=== PATIENT | male | born 1960 | race Caucasian/White ===

== ENCOUNTER → 2018-11-11 | Outpatient (REF) | payer OTHER ==
[~2018-11-11] MED LIST: ATOR10TA66 PO; ATOR40TA70 PO
--- NOTE | 2018-11-11 16:22 | Diagnostic Imaging Report ---
PROCEDURE: MRI left upper extremity without contrast. TECHNIQUE: Multiplanar, multisequence non contrast-enhanced MRI of the left upper extremity was accomplished. INDICATION: Decreased range of motion. Injury three weeks ago. Pain in the left shoulder. COMPARISON: None FINDINGS: No acute fracture is seen in the left shoulder. Alignment appears normal. There is a small left shoulder joint effusion extending to the superior subscapularis recess and long head of the biceps tendon sheath. The acromioclavicular joint demonstrates mild degenerative change. The supraspinatus tendon is intact. The infraspinatus and teres minor tendons are intact. The subscapularis tendon demonstrates moderate tendinosis with a high-grade partial thickness tear at the articular surface. There may be a very small full-thickness component. No muscular atrophy is seen. The long head of the biceps tendon is intact. The glenoid labrum is suboptimally evaluated in the absence of intra-articular contrast. No para-labral cysts are seen. The acromion has a slightly curved undersurface, and the coracoclavicular and coracoacromial ligaments appear intact. The soft tissues about the left shoulder are otherwise unremarkable. The subcoracoid fat is preserved. There is mild edema about the inferior glenohumeral ligament. IMPRESSION: 1. Tendinosis with high-grade partial-thickness tear of the subscapularis tendon. There may be a very small full-thickness component. There is no muscular atrophy. 2. Suspected low-grade sprain of the inferior glenohumeral ligament. Dictated by: Dictated on workstation # [id number]
== END | disposition home or self-care (01) ==
LOC: RAD 14:48
PROVIDERS: ATTEND Nurse Practitioner Family
CPT/HCPCS: 73221

== ENCOUNTER → 2018-11-18 | Outpatient (CLI) | payer OTHER | LOC: ORTHO 10:30 | PROVIDERS: ATTEND Orthopaedic Surgery | DX: S43.492A Other sprain of left shoulder joint, initial encounter (principal); X50.0XXA Overexertion from strenuous movement or load, initial encounter; Y99.0 Civilian activity done for income or pay | CPT/HCPCS: 99203 ==

== ENCOUNTER → 2018-12-16 | Outpatient (CLI) | payer OTHER | LOC: ORTHO 09:42 | PROVIDERS: ATTEND Orthopaedic Surgery | DX: S46.012A Strain of muscle(s) and tendon(s) of the rotator cuff of left shoulder, initial encounter (principal); X50.9XXA Other and unspecified overexertion or strenuous movements or postures, initial encounter; Y99.0 Civilian activity done for income or pay | CPT/HCPCS: 99213 ==

== ENCOUNTER → 2019-01-23 | Outpatient (CLI) | payer OTHER | LOC: ORTHO 08:31 | PROVIDERS: ATTEND Orthopaedic Surgery | DX: S46.012A Strain of muscle(s) and tendon(s) of the rotator cuff of left shoulder, initial encounter (principal); X50.9XXA Other and unspecified overexertion or strenuous movements or postures, initial encounter; Y99.0 Civilian activity done for income or pay | CPT/HCPCS: 99213 ==

== ENCOUNTER → 2019-01-27 | Outpatient (CLI) | payer OTHER | LOC: ORTHO 10:44 | PROVIDERS: ATTEND Orthopaedic Surgery | DX: S46.012A Strain of muscle(s) and tendon(s) of the rotator cuff of left shoulder, initial encounter (principal); X50.9XXA Other and unspecified overexertion or strenuous movements or postures, initial encounter; Y99.0 Civilian activity done for income or pay ==

== ENCOUNTER → 2019-02-19 | Outpatient (CLI) | payer OTHER | LOC: ORTHO 09:47 | PROVIDERS: ATTEND Orthopaedic Surgery | DX: S46.012A Strain of muscle(s) and tendon(s) of the rotator cuff of left shoulder, initial encounter (principal); X50.9XXA Other and unspecified overexertion or strenuous movements or postures, initial encounter; Y99.0 Civilian activity done for income or pay | CPT/HCPCS: 99213 ==

== ENCOUNTER → 2019-04-11 | Outpatient (CLI) | payer OTHER | LOC: ORTHO 09:48 | PROVIDERS: ATTEND Orthopaedic Surgery | DX: S46.012A Strain of muscle(s) and tendon(s) of the rotator cuff of left shoulder, initial encounter (principal); X50.9XXA Other and unspecified overexertion or strenuous movements or postures, initial encounter; Y99.0 Civilian activity done for income or pay | CPT/HCPCS: 99213 ==

== ENCOUNTER → 2019-05-09 | Outpatient (CLI) | payer OTHER | LOC: ORTHO 08:49 | PROVIDERS: ATTEND Orthopaedic Surgery | DX: S46.012A Strain of muscle(s) and tendon(s) of the rotator cuff of left shoulder, initial encounter (principal); X50.9XXA Other and unspecified overexertion or strenuous movements or postures, initial encounter; Y99.0 Civilian activity done for income or pay | CPT/HCPCS: 99213 ==

== ENCOUNTER 2019-05-30 10:32 | Outpatient (RCR) | payer OTHER | END 2019-06-10 | disposition home or self-care (01) | PROVIDERS: ATTEND Orthopaedic Surgery | DX: S46.012A Strain of muscle(s) and tendon(s) of the rotator cuff of left shoulder, initial encounter (principal); X50.9XXA Other and unspecified overexertion or strenuous movements or postures, initial encounter; Y99.0 Civilian activity done for income or pay ==

== ENCOUNTER 2019-07-04 10:54 | Outpatient (RCR) | payer OTHER | END 2019-07-04 14:41 | disposition home or self-care (01) | PROVIDERS: ATTEND Orthopaedic Surgery | DX: S46.012D Strain of muscle(s) and tendon(s) of the rotator cuff of left shoulder, subsequent encounter (principal); M75.112 Incomplete rotator cuff tear or rupture of left shoulder, not specified as traumatic ==

== ENCOUNTER 2019-10-03 12:28 | Outpatient (RCR) | payer OTHER | END 2019-12-11 | disposition home or self-care (01) | PROVIDERS: ATTEND Nurse Practitioner Family | DX: M65.30 Trigger finger, unspecified finger (principal); Z98.890 Other specified postprocedural states ==

== ENCOUNTER 2020-02-22 16:52 | Emergency (ER) | payer OTHER ==
[~2020-02-22] VITALS: Ht 177.8 cm; Wt 73.5 kg
--- NOTE | 2020-02-22 17:00 | NUR ---
specimen cup provided urine specimen requested.
--- NOTE | 2020-02-22 17:10 | ED Back Pain ---
General Chief Complaint: Back Problems Stated Complaint: ABD/BACK PAIN Nursing Triage Note: left flank pain today. denies injury. reports constipation. Nursing Sepsis Screen: No Definite Risk Source of Information: Patient Exam Limitations: No Limitations History of Present Illness Date Seen by Provider: Feb 22, 2020 Time Seen by Provider: 17:07 Initial Comments To ER with c/o LLQ / left flank pain that was present on awakening this morning, not present on going to bed last night. Mild radiation of pain to left scrotum. No fever or chills. No nausea or vomiting. Feels the urge to have a bowel movement but is unable to do so. Had a normal BM yesterday. Location: Other (llq abdomen) Timing/Duration: 12 Hours Severity: Moderate Pain/Injury Location: Abdomen Method of Injury: Unknown Associated Symptoms: denies symptoms Allergies and Home Medications Allergies Coded Allergies: No Known Drug Allergies (Unverified , 09/02/15) Home Medications Cephalexin 500 Mg Capsule, 500 MG PO TID Prescribed by: SHAILESH RIVERS on 02/22/201754 Hydrocodone/Acetaminophen 1 Each Tablet, 1 EACH PO Q4-6HR PRN for PAIN-MODERATE Prescribed by: SHAILESH RIVERS on 02/22/201756 Ibuprofen 800 Mg Tablet, 800 MG PO Q8H PRN for PAIN Prescribed by: SHAILESH RIVERS on 02/22/201754 Tamsulosin HCl 0.4 Mg Cap, 0.4 MG PO DAILY Prescribed by: SHAILESH RIVERS on 02/22/201754 Patient Home Medication List Home Medication List Reviewed: Yes Review of Systems Constitutional: see HPI EENTM: see HPI Respiratory: no symptoms reported Cardiovascular: no symptoms reported Gastrointestinal: abdominal pain Genitourinary: no symptoms reported Musculoskeletal: no symptoms reported Skin: no symptoms reported Psychiatric/Neurological: No Symptoms Reported Past Vxgskqz-Tuzyco-Namqqa Hx Patient Social History Alcohol Use: Denies Use Recreational Drug Use: No Smoking Status: Never a Smoker 2nd Hand Smoke Exposure: No Recent Foreign Travel: No Contact w/Someone Who Travel: No Recent Infectious Disease Expo: No Recent Hopitalizations: No Physical Abuse: No Sexual Abuse: No Mistreated: No Fear: No Immunizations Up To Date Tetanus Booster (TDap): Unknown Seasonal Allergies Seasonal Allergies: No Past Medical History Surgeries: Yes (LEFT EYE REMOVED, ) Respiratory: No Cardiac: No Neurological: No Genitourinary: No Gastrointestinal: No Musculoskeletal: No Endocrine: No HEENT: No Cancer: No Psychosocial: No Integumentary: No Blood Disorders: No Physical Exam Vital Signs Vital Signs - First Documented 02/22/20 16:55 Temp 36.5 Pulse 68 Resp 16 B/P (MAP) 168/95 (119) Pulse Ox 96 O2 Delivery Room Air Capillary Refill : Less Than 3 Seconds Height, Weight, BMI Height: 5'10.00" Weight: 165lbs. 0.0oz. 74.190038jo; 23.00 BMI Method: General Appearance: No Apparent Distress, WD/WN Neck: Full Range of Motion, Normal Inspection Respiratory: Normal Breath Sounds, No Accessory Muscle Use, No Respiratory Distress Gastrointestinal: Soft, Tenderness Neurologic/Psychiatric: Alert, Oriented x3 Skin: Normal Color, Warm/Dry Progress/Results/Core Measures Results/Orders Lab Results Laboratory Tests Test 02/22/20 17:00 02/22/20 17:43 Range/Units White Blood Count 8.2 4.3-11.0 10^3/uL Red Blood Count 5.67 4.35-5.85 10^6/uL Hemoglobin 16.8 13.3-17.7 G/DL Hematocrit 48 40-54 % Mean Corpuscular Volume 85 80-99 FL Mean Corpuscular Hemoglobin 30 25-34 PG Mean Corpuscular Hemoglobin Concent 35 32-36 G/DL Red Cell Distribution Width 13.4 10.0-14.5 % Platelet Count 196 130-400 10^3/uL Mean Platelet Volume 10.6 H 7.4-10.4 FL Neutrophils (%) (Auto) 72 42-75 % Lymphocytes (%) (Auto) 18 12-44 % Monocytes (%) (Auto) 6 0-12 % Eosinophils (%) (Auto) 3 0-10 % Basophils (%) (Auto) 1 0-10 % Neutrophils # (Auto) 5.9 1.8-7.8 X 10^3 Lymphocytes # (Auto) 1.5 1.0-4.0 X 10^3 Monocytes # (Auto) 0.5 0.0-1.0 X 10^3 Eosinophils # (Auto) 0.2 0.0-0.3 10^3/uL Basophils # (Auto) 0.1 0.0-0.1 10^3/uL Sodium Level 141 135-145 MMOL/L Potassium Level 3.9 3.6-5.0 MMOL/L Chloride Level 108 H 98-107 MMOL/L Carbon Dioxide Level 23 21-32 MMOL/L Anion Gap 10 5-14 MMOL/L Blood Urea Nitrogen 12 7-18 MG/DL Creatinine 1.26 0.60-1.30 MG/DL Estimat Glomerular Filtration Rate 59 BUN/Creatinine Ratio 10 Glucose Level 115 H 70-105 MG/DL Calcium Level 8.7 8.5-10.1 MG/DL Corrected Calcium 8.5 8.5-10.1 MG/DL Total Bilirubin 0.7 0.1-1.0 MG/DL Aspartate Amino Transf (AST/SGOT) 25 5-34 U/L Alanine Aminotransferase (ALT/SGPT) 22 0-55 U/L Alkaline Phosphatase 107 40-136 U/L Total Protein 7.1 6.4-8.2 GM/DL Albumin 4.2 3.2-4.5 GM/DL Urine Color YELLOW Urine Clarity CLEAR Urine pH 7.0 5-9 Urine Specific [place] 1.015 L 1.016-1.022 Urine Protein NEGATIVE NEGATIVE Urine Glucose (UA) NEGATIVE NEGATIVE Urine Ketones NEGATIVE NEGATIVE Urine Nitrite NEGATIVE NEGATIVE Urine Bilirubin NEGATIVE NEGATIVE Urine Urobilinogen 0.2 < = 1.0 MG/DL Urine Leukocyte Esterase NEGATIVE NEGATIVE Urine RBC (Auto) 3+ H NEGATIVE Urine RBC >100 H /HPF Urine WBC NONE /HPF Urine Squamous Epithelial Cells 0-2 /HPF Urine Crystals NONE /LPF Urine Bacteria NEGATIVE /HPF Urine Casts NONE /LPF Urine Mucus SMALL H /LPF Urine Culture Indicated NO My Orders Orders - SHAILESH RIVERS APRN Cbc With Automated Diff (02/22/20 17:06) Comprehensive Metabolic Panel (02/22/20 17:06) Ua Culture If Indicated (02/22/20 17:06) Ed Iv/Invasive Line Start (02/22/20 17:06) Ct Abd/Pelvis Wo(Kidney Stone) (02/22/20 17:06) Ketorolac Injection (Toradol Injection) (02/22/20 17:15) Fentanyl Injection (Sublimaze Injection (02/22/20 17:15) Ns Iv 1000 Ml (Sodium Chloride 0.9%) (02/22/20 17:15) Rx-Hydrocodone/Apap 5-325 Mg (Rx-Vicodin (02/22/20 18:00) Tamsulosin Capsule (Flomax Capsule) (02/22/20 18:00) Abdomen/Kub 1view (02/22/20 17:58) Medications Given in ED Current Medications Medications Dose Ordered Sig/Anabela Route Start Time Stop Time Status Last Admin Dose Admin Fentanyl Citrate 50 mcg ONCE ONCE IVP 02/22/20 17:15 02/22/20 17:16 DC 02/22/20 17:11 50 MCG Ketorolac Tromethamine 15 mg ONCE ONCE IVP 02/22/20 17:15 02/22/20 17:16 DC 02/22/20 17:11 15 MG Vital Signs/I&O 02/22/20 16:55 Temp 36.5 Pulse 68 Resp 16 B/P (MAP) 168/95 (119) Pulse Ox 96 O2 Delivery Room Air Blood Pressure Mean: 119 Departure Impression Primary Impression: Kidney stone Disposition: 01 HOME, SELF-CARE Condition: Stable Departure-Patient Inst. Decision time for Depature: 17:51 Referrals: WALKER ELKINS MD Patient Instructions: Kidney Stones (DC) Add. Discharge Instructions: 1. pain medication as directed 2. return to er for any concerns 3. Call Dr Elkins tomorrow to make an appointment to be seen, tell them that you were seen in ER and diagnosed with a LEFT URETERAL STONE All discharge instructions reviewed with patient and/or family. Voiced understanding. Scripts Ibuprofen (Ibuprofen) 800 Mg Tablet 800 MG PO Q8H PRN for PAIN, #30 TAB 0 Refills Prov: SHAILESH RIVERS APRN 02/22/20 Hydrocodone/Acetaminophen (Lorcet 5-325 mg Tablet) 1 Each Tablet 1 EACH PO Q4-6HR PRN for PAIN-MODERATE MDD 10 for 7 Days, #14 TAB Prov: SHAILESH RIVERS APRN 02/22/20 Cephalexin (Keflex) 500 Mg Capsule 500 MG PO TID, #10 CAP Prov: SHAILESH RIVERS APRN 02/22/20 Tamsulosin HCl (Flomax) 0.4 Mg Cap 0.4 MG PO DAILY, #10 CAP Prov: SHAILESH RIVERS APRN 02/22/20 Copy Copies To 1: WALKER ELKINS MD, PETER J APRN Feb 22, 2020 17:10
[2020-02-22 17:13] LABS: BASOPHILS # (AUTO) 0.1 10^3/uL (0.0-0.1); BASOPHILS % (AUTO) 1 % (0-10); EOSINOPHILS # (AUTO) 0.2 10^3/uL (0.0-0.3); EOSINOPHILS % (AUTO) 3 % (0-10); HEMATOCRIT 48 % (40-54); HEMOGLOBIN 16.8 G/DL (13.3-17.7); LYMPHOCYTES # (AUTO) 1.5 X 10^3 (1.0-4.0); LYMPHOCYTES % (AUTO) 18 % (12-44); MEAN CORPUSCULAR HEMOGLOBIN 30 PG (25-34); MEAN CORPUSCULAR HGB CONC 35 G/DL (32-36); MEAN CORPUSCULAR VOLUME 85 FL (80-99); MEAN PLATELET VOLUME 10.6 FL (7.4-10.4); MONOCYTES # (AUTO) 0.5 X 10^3 (0.0-1.0); MONOCYTES % (AUTO) 6 % (0-12); NEUTROPHILS # (AUTO) 5.9 X 10^3 (1.8-7.8); NEUTROPHILS % (AUTO) 72 % (42-75); PLATELET COUNT 196 10^3/uL (130-400); RED CELL DISTRIBUTION WIDTH 13.4 % (10.0-14.5); WHITE BLOOD COUNT 8.2 10^3/uL (4.3-11.0)
[2020-02-22] MEDS ORDERED: NS IV 1000 ML 1,000 ML IV SCH (17:15)
[2020-02-22] MEDS ORDERED: KETOROLAC 30 MG/ML VIAL IVP ONE (17:15)
[2020-02-22] MEDS ORDERED: fentaNYL INJECTION 100 MCG/2 ML AMP IVP ONE (17:15)
[2020-02-22 17:23] LABS: ALBUMIN 4.2 GM/DL (3.2-4.5); POTASSIUM 3.9 MMOL/L (3.6-5.0)
[2020-02-22 17:24] LABS: CALCIUM 8.7 MG/DL (8.5-10.1)
[2020-02-22 17:26] LABS: TOTAL PROTEIN 7.1 GM/DL (6.4-8.2)
[2020-02-22 17:27] LABS: BILIRUBIN,TOTAL 0.7 MG/DL (0.1-1.0)
[2020-02-22 17:29] LABS: CREATININE SERUM 1.26 MG/DL (0.60-1.30)
[2020-02-22] MEDS ORDERED: HYDR-3870 PO (17:55)
[2020-02-22] MEDS ORDERED: CEPH-507 PO (17:55)
[2020-02-22] MEDS ORDERED: IBUP-1780 PO (17:55)
[2020-02-22] MEDS ORDERED: TMSL.4C PO (17:55)
[2020-02-22 17:57] LABS: BILIRUBIN,URINE NEGATIVE (NEGATIVE); CLARITY,URINE CLEAR; COLOR,URINE YELLOW; GLUCOSE, URINE (UA) NEGATIVE (NEGATIVE); KETONES,URINE NEGATIVE (NEGATIVE); LEUKOCYTE ESTERASE ,URINE NEGATIVE (NEGATIVE); NITRITE,URINE NEGATIVE (NEGATIVE); PROTEIN,URINE NEGATIVE (NEGATIVE)
[2020-02-22] MEDS ORDERED: TAMSULOSIN 0.4 MG (FLOMAX) CAP PO SCH (18:00)
[2020-02-22] MEDS ORDERED: RX-HYDROCODONE/APAP 5/325 MG #4 TAB PK PO PRN (18:00)
[2020-02-22 18:07] LABS: RBC,URINE >100 /HPF
[2020-02-22 18:08] LABS: BACTERIA,URINE NEGATIVE /HPF; SQUAMOUS EPITHELIAL CELL,UR 0-2 /HPF
--- NOTE | 2020-02-22 18:37 | Diagnostic Imaging Report ---
INDICATION: Abdominal pain. COMPARISON: CT same day. EXAMINATION: Abdomen. FINDINGS: There is a known kidney stone in the mid left ureter located just inferior to the L4 transverse process. The bowel gas pattern is normal. Osseous structures are age-appropriate. IMPRESSION: Mid left ureteral kidney stone. Dictated by: Dictated on workstation # [id number]
--- NOTE | 2020-02-22 18:37 | Diagnostic Imaging Report ---
PROCEDURE: CT urinary tract, rule out kidney stone. TECHNIQUE: Multiple contiguous axial images were obtained through the abdomen and pelvis without the use of intravenous contrast. Auto Exposure Controls were utilized during the CT exam to meet ALARA standards for radiation dose reduction. INDICATION: Left flank pain. COMPARISON: None. FINDINGS: There is moderate left-sided hydronephrosis and hydroureter secondary to an obstructive 4 mm stone in the mid left ureter. Additional nonobstructive 1-2 mm stones are seen in the lower pole of the left kidney. The right kidney is normal. The lung bases are clear. There is a low density liver lesion in the right hepatic lobe, likely benign cyst. Recommend three-phase imaging on a nonemergent basis to exclude neoplasm. The gallbladder, spleen, adrenal glands, pancreas, vascular structures and bowel are grossly unremarkable. There is slight prostate enlargement. The urinary bladder is grossly normal. Osseous structures are age-appropriate. IMPRESSION: 1. Left-sided hydronephrosis secondary to an obstructive 4 mm stone in the left mid ureter. 2. Likely benign liver cyst in the right hepatic lobe of the liver, measuring approximately 11 mm. Nonemergent three-phase CT imaging recommended. 3. Mild prostate enlargement. Dictated by: Dictated on workstation # [id number]
[2020-02-22 18:42] VITALS: BP 161/87
== END 2020-02-22 18:42 | disposition home or self-care (01) ==
LOC: EDUNIT# 16:52 → ER 16:53
DX: N13.2 Hydronephrosis with renal and ureteral calculous obstruction (principal)
CPT/HCPCS: 36415; 74018; 74176; 80053; 81000; 85025

== ENCOUNTER 2020-02-24 15:19 | Outpatient (CLI) | payer OTHER ==
[~2020-02-24] VITALS: Ht 177 cm; Wt 75.0 kg
[~2020-02-24 15:19] MED LIST changes: +CEPH-507 PO; +HYDR-3870 PO; +IBUP-1780 PO; +TMSL.4C PO
== END 2020-02-24 15:32 | disposition home or self-care (01) ==
LOC: PREOP 15:19
PROVIDERS: ATTEND Urology
DX: Z01.818 Encounter for other preprocedural examination (principal)

== ENCOUNTER 2020-02-25 09:40 | Day surgery (SDC) | payer OTHER ==
[~2020-02-25] VITALS: Ht 177 cm; Wt 75.0 kg
[2020-02-25] VITALS (11 sets, daily range): BP systolic 103–144; BP diastolic 69–93
[2020-02-25] MEDS ORDERED: LACTATED RINGERS 1,000 ML IV PRN (09:51)
--- OUTSIDE RECORDS SUMMARY | 2020-02-25 09:53 | XMS REPORT | Continuity of Care Document ---
Author Organization Unknown Address Unknown Phone Unavailable Allergies Active Description Code Type Severity Reaction Onset Reported/Identified Relationship to Patient Clinical Status Yes No Known Drug Allergies [id number] Drug Allergy Unknown N/A 09/02/2015 Medications There is no data. Problems Date Dx Coded Attending Type Code Diagnosis Diagnosed By 06/14/1440 KAREL VILLA MD Ot M75.112 INCOMPLETE ROTATR-CUFF TEAR/RUPTR OF L S 06/14/1440 KAREL VILLA MD, Ot S46.012D STRAIN OF MUSC/TEND THE ROTATOR CUFF OF 09/06/2015 KELSY ESTRADA, TABATHA Kamara Ot Z12.11 ENCOUNTER FOR SCREENING FOR MALIGNANT NE 12/02/2018 KAREL VILLA MD Ot S43.492A OTHER SPRAIN OF LEFT SHOULDER JOINT, INI 12/02/2018 KAREL VILLA MD Ot X50.0XXA OVEREXERTION FROM STRENUOUS MOVEMENT OR 12/02/2018 KAREL VILLA MD Ot Y99. 0 CIVILIAN ACTIVITY DONE FOR INCOME OR PAY 12/03/2018 KAREL VILLA MD Ot S46.012A STRAIN OF MUSC/TEND THE ROTATOR CUFF OF 12/03/2018 KAREL VILLA MD Ot X50.9XXA OTHER AND UNSPECIFIED OVREXRTN OR STRNOU 12/03/2018 KAREL VILLA MD Ot Y99. 0 CIVILIAN ACTIVITY DONE FOR INCOME OR PAY 12/16/2018 KAREL VILLA MD Ot S46.012A STRAIN OF MUSC/TEND THE ROTATOR CUFF OF 12/16/2018 KAREL VILLA MD Ot X50.9XXA OTHER AND UNSPECIFIED OVREXRTN OR STRNOU 12/16/2018 KAREL VILLA MD Ot Y99. 0 CIVILIAN ACTIVITY DONE FOR INCOME OR PAY 12/20/2018 KAREL VILLA MD Ot S46.012A STRAIN OF MUSC/TEND THE ROTATOR CUFF OF 12/20/2018 KAREL VILLA MD Ot X50.9XXA OTHER AND UNSPECIFIED OVREXRTN OR STRNOU 12/20/2018 KAREL VILLA MD Ot Y99. 0 CIVILIAN ACTIVITY DONE FOR INCOME OR PAY 12/22/2018 KAREL VILLA MD Ot S46.012A STRAIN OF MUSC/TEND THE ROTATOR CUFF OF 12/22/2018 KAREL VILLA MD Ot X50.9XXA OTHER AND UNSPECIFIED OVREXRTN OR STRNOU 12/22/2018 KAREL VILLA MD Ot Y99. 0 CIVILIAN ACTIVITY DONE FOR INCOME OR PAY 01/07/2019 KAREL VILLA MD Ot S46.012A STRAIN OF MUSC/TEND THE ROTATOR CUFF OF 01/07/2019 KAREL VILLA MD Ot X50.9XXA OTHER AND UNSPECIFIED OVREXRTN OR STRNOU 01/07/2019 KAREL VILLA MD Ot Y99. 0 CIVILIAN ACTIVITY DONE FOR INCOME OR PAY 2019 KAREL VILLA MD Ot S46.012A STRAIN OF MUSC/TEND THE ROTATOR CUFF OF 2019 KAREL VILLA MD Ot X50.9XXA OTHER AND UNSPECIFIED OVREXRTN OR STRNOU 2019 KAREL VILLA MD Ot Y99. 0 CIVILIAN ACTIVITY DONE FOR INCOME OR PAY 01/31/2019 KAREL VILLA MD Ot S46.012A STRAIN OF MUSC/TEND THE ROTATOR CUFF OF 01/31/2019 KAREL VILLA MD Ot X50.9XXA OTHER AND UNSPECIFIED OVREXRTN OR STRNOU 01/31/2019 KAREL VILLA MD Ot Y99. 0 CIVILIAN ACTIVITY DONE FOR INCOME OR PAY 01/31/2019 KAREL VILLA MD Ot S46.012A STRAIN OF MUSC/TEND THE ROTATOR CUFF OF 01/31/2019 KAREL VILLA MD Ot X50.9XXA OTHER AND UNSPECIFIED OVREXRTN OR STRNOU 01/31/2019 KAREL VILLA MD Ot Y99. 0 CIVILIAN ACTIVITY DONE FOR INCOME OR PAY 01/31/2019 KAREL VILLA MD Ot S46.012A STRAIN OF MUSC/TEND THE ROTATOR CUFF OF 01/31/2019 KAREL VILLA MD Ot X50.9XXA OTHER AND UNSPECIFIED OVREXRTN OR STRNOU 01/31/2019 KAREL VILLA MD Ot Y99. 0 CIVILIAN ACTIVITY DONE FOR INCOME OR PAY 02/19/2019 KAREL VILLA MD Ot S46.012A STRAIN OF MUSC/TEND THE ROTATOR CUFF OF 02/19/2019 KAREL VILLA MD Ot X50.9XXA OTHER AND UNSPECIFIED OVREXRTN OR STRNOU 02/19/2019 KAREL VILLA MD Ot Y99. 0 CIVILIAN ACTIVITY DONE FOR INCOME OR PAY 03/12/2019 KAREL VILLA MD Ot S46.012A STRAIN OF MUSC/TEND THE ROTATOR CUFF OF 03/12/2019 KAREL VILLA MD Ot X50.9XXA OTHER AND UNSPECIFIED OVREXRTN OR STRNOU 03/12/2019 KAREL VILLA MD Ot Y99. 0 CIVILIAN ACTIVITY DONE FOR INCOME OR PAY 03/12/2019 KAREL VILLA MD Ot S46.012A STRAIN OF MUSC/TEND THE ROTATOR CUFF OF 03/12/2019 KAREL VILLA MD Ot X50.9XXA OTHER AND UNSPECIFIED OVREXRTN OR STRNOU 03/12/2019 KAREL VILLA MD Ot Y99. 0 CIVILIAN ACTIVITY DONE FOR INCOME OR PAY 03/14/2019 KAREL VILLA MD Ot S46.012A STRAIN OF MUSC/TEND THE ROTATOR CUFF OF 03/14/2019 KAREL VILLA MD Ot X50.9XXA OTHER AND UNSPECIFIED OVREXRTN OR STRNOU 03/14/2019 KAREL VILLA MD Ot Y99. 0 CIVILIAN ACTIVITY DONE FOR INCOME OR PAY 03/16/2019 KAREL VILLA MD Ot S46.012A STRAIN OF MUSC/TEND THE ROTATOR CUFF OF 03/16/2019 KAREL VILLA MD Ot X50.9XXA OTHER AND UNSPECIFIED OVREXRTN OR STRNOU 03/16/2019 KAREL VILLA MD Ot Y99. 0 CIVILIAN ACTIVITY DONE FOR INCOME OR PAY 03/27/2019 KAREL VILLA MD Ot S46.012A STRAIN OF MUSC/TEND THE ROTATOR CUFF OF 03/27/2019 KAREL VILLA MD Ot X50.9XXA OTHER AND UNSPECIFIED OVREXRTN OR STRNOU 03/27/2019 KAREL VILLA MD Ot Y99. 0 CIVILIAN ACTIVITY DONE FOR INCOME OR PAY 04/14/2019 KAREL VILLA MD Ot S46.012A STRAIN OF MUSC/TEND THE ROTATOR CUFF OF 04/14/2019 KAREL VILLA MD Ot X50.9XXA OTHER AND UNSPECIFIED OVREXRTN OR STRNOU 04/14/2019 KAREL VILLA MD Ot Y99. 0 CIVILIAN ACTIVITY DONE FOR INCOME OR PAY 05/09/2019 KAREL VILLA MD Ot S46.012A STRAIN OF MUSC/TEND THE ROTATOR CUFF OF 05/09/2019 KAREL VILLA MD Ot X50.9XXA OTHER AND UNSPECIFIED OVREXRTN OR STRNOU 05/09/2019 KAREL VILLA MD Ot Y99. 0 CIVILIAN ACTIVITY DONE FOR INCOME OR PAY 05/13/2019 KAREL VILLA MD Ot S46.012A STRAIN OF MUSC/TEND THE ROTATOR CUFF OF 05/13/2019 KAREL VILLA MD Ot X50.9XXA OTHER AND UNSPECIFIED OVREXRTN OR STRNOU 05/13/2019 KAREL VILLA MD Ot Y99. 0 CIVILIAN ACTIVITY DONE FOR INCOME OR PAY 05/16/2019 KAREL VILLA MD Ot S46.012A STRAIN OF MUSC/TEND THE ROTATOR CUFF OF 05/16/2019 KAREL VILLA MD Ot X50.9XXA OTHER AND UNSPECIFIED OVREXRTN OR STRNOU 05/16/2019 KAREL VILLA MD Ot Y99. 0 CIVILIAN ACTIVITY DONE FOR INCOME OR PAY 06/10/2019 KAREL VILLA MD Ot S46.012A STRAIN OF MUSC/TEND THE ROTATOR CUFF OF 06/10/2019 KAREL VILLA MD Ot X50.9XXA OTHER AND UNSPECIFIED OVREXRTN OR STRNOU 06/10/2019 KAREL VILLA MD Ot Y99. 0 CIVILIAN ACTIVITY DONE FOR INCOME OR PAY 06/11/2019 KAREL VILLA MD Ot S46.012A STRAIN OF MUSC/TEND THE ROTATOR CUFF OF 06/11/2019 KAREL VILLA MD Ot X50.9XXA OTHER AND UNSPECIFIED OVREXRTN OR STRNOU 06/11/2019 KAREL VILLA MD Ot Y99. 0 CIVILIAN ACTIVITY DONE FOR INCOME OR PAY 06/27/2019 KAREL VILLA MD Ot M75.112 INCOMPLETE ROTATR-CUFF TEAR/RUPTR OF L S 06/27/2019 KAREL VILLA MD, Ot S46.012D STRAIN OF MUSC/TEND THE ROTATOR CUFF OF 07/01/2019 KAREL VILLA MD, Ot M75.112 INCOMPLETE ROTATR-CUFF TEAR/RUPTR OF L S 07/01/2019 KAREL VILLA MD, Ot S46.012D STRAIN OF MUSC/TEND THE ROTATOR CUFF OF 09/16/2019 KING FABRICIO Ot M65.30 TRIGGER FINGER, UNSPECIFIED FINGER 09/16/2019 JOVANY FABRICIO Ot Z98.890 OTHER SPECIFIED POSTPROCEDURAL STATES 12/11/2019 LUPE MANZONA Ot M65.30 TRIGGER FINGER, UNSPECIFIED FINGER 12/11/2019 JOVANY FABRICIO Ot Z98.890 OTHER SPECIFIED POSTPROCEDURAL STATES Procedures There is no data. Results Test Result Range Complete blood count (CBC) with automate d white blood cell (WBC) differential - 02/22/20 17:00 Blood leukocytes automated count (number/volume) 8.2 10*3/uL 4.3-11.0 Blood erythrocytes automated count (number/volume) 5.67 10*6/uL 4.35-5.85 Venous blood hemoglobin measurement (mass/volume) 16.8 g/dL 13.3-17.7 Blood hematocrit (volume fraction) 48 % 40-54 Automated erythrocyte mean corpuscular volume 85 [ foz_us] 80-99 Automated erythrocyte mean corpuscular h emoglobin (mass per erythrocyte) 30 pg 25-34 Automated erythrocyte mean corpuscular h emoglobin concentration measurement (mass/volume) 35 g/dL 32-36 Automated erythrocyte distribution width ratio 13. 4 % 10.0- 14.5 Automated blood platelet count (count/volume) 196 10*3/uL 130-400 Automated blood platelet mean volume measurement 10.6 [foz_us] 7.4-10.4 Automated blood neutrophils/100 leukocytes 72 % 42-75 Automated blood lymphocytes/100 leukocytes 18 % 12-44 Blood monocytes/100 leukocytes 6 % 0-12 Automated blood eosinophils/100 leukocytes 3 % 0-10 Automated blood basophils/100 leukocytes 1 % 0-10 Blood neutrophils automated count (number/volume) 5.9 10*3 1.8-7.8 Blood lymphocytes automated count (number/volume) 1.5 10*3 1.0-4.0 Blood monocytes automated count (number/volume) 0. 5 10*3 0.0-1.0 Automated eosinophil count 0.2 10*3/uL 0 .0-0.3 Automated blood basophil count (count/volume) 0.1 10*3/uL 0.0-0.1 Comprehensive metabolic panel - 02/22/20 17:00 Serum or plasma sodium measurement (moles/volume) 141 mmol/L 135-145 Serum or plasma potassium measurement (moles/volume) 3.9 mmol/L 3.6-5.0 Serum or plasma chloride measurement (moles/volume) 108 mmol/L 98-107 Carbon dioxide 23 mmol/L 21-32 Serum or plasma anion gap determination (moles/volume) 10 mmol/L 5-14 Serum or plasma urea nitrogen measurement (mass/volume ) 12 mg/dL 7-18 Serum or plasma creatinine measurement (mass/volume) 1.26 mg/dL 0.60-1.30 Serum or plasma urea nitrogen/creatinine mass ratio 10 NRG Serum or plasma creatinine measurement w ith calculation of estimated glomerular filtration rate 59 NRG Serum or plasma glucose measurement (mass/volume) 115 mg/dL 70-105 Serum or plasma calcium measurement (mass/volume) 8.7 mg/dL 8.5-10.1 Serum or plasma total bilirubin measurement (mass/volu me) 0.7 mg/dL 0.1-1.0 Serum or plasma alkaline phosphatase lukas surement (enzymatic activity/volume) 107 U/L 40-136 Serum or plasma aspartate aminotransfera se measurement (enzymatic activity/volume) 25 U/L 5-34 Serum or plasma alanine aminotransferase measurement (enzymatic activity/volume) 22 U/L 0-55 Serum or plasma protein measurement (mass/volume) 7.1 g/dL 6.4-8.2 Serum or plasma albumin measurement (mass/volume) 4.2 g/dL 3.2-4.5 CALCIUM CORRECTED 8.5 mg/dL 8.5-10.1 Complete urinalysis with reflex to cultu re - 02/22/20 17:43 Urine color determination YELLOW NRG Urine clarity determination CLEAR NR G Urine pH measurement by test strip 7.0 5-9 Specific gravity of urine by test strip 1.015 1.016-1.022 Urine protein assay by test strip, semi-quantitative NEGATIVE NEGATIVE Urine glucose detection by automated test strip NE GATIVE NEGATIVE Erythrocytes detection in urine sediment by light micr oscopy 3+ NEGATIVE Urine ketones detection by automated test strip NE GATIVE NEGATIVE Urine nitrite detection by test strip NEGATIVE NEGATIVE Urine total bilirubin detection by test strip NEGA TIVE NEGATIVE Urine urobilinogen measurement by automated test strip (mass/volume) 0.2 mg/dL < = 1.0 Urine leukocyte esterase detection by dipstick NEG ATIVE NEGATIVE Automated urine sediment erythrocyte cou nt by microscopy (number/high power field) > [HPF] NRG Automated urine sediment leukocyte count by microscopy (number/high power field) NONE NRG Bacteria detection in urine sediment by light microsco py NEGATIVE NRG Squamous epithelial cells detection in u rine sediment by light microscopy 0-2 NRG Crystals detection in urine sediment by light microsco py NONE NRG Casts detection in urine sediment by light microscopy NONE NRG Mucus detection in urine sediment by light microscopy SMALL NRG Complete urinalysis with reflex to culture NO NRG Encounters ACCT No. Visit Date/Time Discharge Status Pt. Type Provider Facility Loc./Unit Complaint [id number] 02/22/2020 16:53:00 18:42:00 DIS Emergency SHAILESH RIVERS APRN [facility] ER ABD/BACK PAIN [id number] 10/03/2019 12:28:00 00:01:00 DIS Outpatient FABRICIO MANZO [facility] REHAB S/P R MF REMOVAL OF SLIP OF SUBLIMIS TENDON [id number] 07/04/2019 10:54:00 14:41:00 DIS Outpatient KAREL VILLA MD [facility] REHAB L SHOULDER PAIN [id number] 05/30/2019 10:32:00 00:01:00 DIS Outpatient KAREL VILLA MD [facility] REHAB L SHOULDER PAIN [id number] 05/09/2019 08:49:00 23:59:59 CLS Outpatient KAREL VILLA MD [facility] ORTHO [id number] 04/11/2019 09:48:00 23:59:59 CLS Outpatient KAREL VILLA MD [facility] ORTHO [id number] 02/19/2019 09:47:00 23:59:59 CLS Outpatient KAREL VILAL MD [facility] ORTHO [id number] 02/12/2019 10:36:00 00:01:00 DIS Outpatient KAREL VILLA MD [facility] REHAB L SHOULDER PAIN [id number] 01/27/2019 10:44:00 23:59:59 CLS Outpatient KAREL VILLA MD [facility] ORTHO [id number] 01/23/2019 08:31:00 23:59:59 CLS Outpatient KAREL VILLA MD [facility] ORTHO [id number] 01/03/2019 09:33:00 23:59:59 CLS Outpatient KAREL VILLA MD [facility] ORTHO [id number] 12/16/2018 09:42:00 23:59:59 CLS Outpatient KAREL VILLA MD [facility] ORTHO [id number] 12/02/2018 09:00:00 23:59:59 CLS Outpatient KAREL VILLA MD [facility] ORTHO [id number] 11/18/2018 10:30:00 23:59:59 CLS Outpatient KAREL VILLA MD [facility] ORTHO [id number] 11/11/2018 14:48:00 23:59:59 CLS Outpatient CLAUDIA DONNELLY [facility] RAD SPRAIN L SHOULDER [id number] 09/06/2015 07:17:00 13:24:00 DIS Outpatient KELSY ESTRADA, TABATHA Kamara [facility] SCREENING [id number] 09/02/2015 05:41:00 23:59:59 CLS Outpatient TABATHA TIERNEY MD [facility] PREOP
--- OUTSIDE RECORDS SUMMARY | 2020-02-25 09:53 | XMS REPORT ---
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 [employer] Address [address] [address] Care Team Providers Care Associate Software Engineer Name Role Phone YOKO FERMIN Unavailable KELSY ESTRADA, TABATHA Kamara Unavailable Unavailable CLAUDIA DONNELLY Unavailable Unavailable KAREL VILLA MD Unavailable Unavailable KAREL VILLA PCP FABRICIO MANZO Unavailable Unavailable [place] Unavailable Unavailable [place] Unavailable Unavailable SHAILESH RIVERS APRN Unavailable Unavailable BRITTNI ESTRADA, WALKER Tabor Unavailable Unavailable Unavailable Unavailable Unavailable Unavailable Unavailable Unavailable Unavailable Unavailable Allergies Allergy Reported Allergen(s) Allergy Type Date of Reaction(s) Care Facility Classificati Onset Provider on Unclassified No Known Drug Allergies DA 09-02-2015 SARA Garza [facility] Via (20 sources) KELSY ESTRADA [facility] ([id number]) Encounters Encounter Date Encounter Type Encounter Diagnosis Care Provider Facility Start: Patient encounter WALKER ELKINS MD [facility] Via C [facility]risti 02-24-2020 [facility] Start: Emergency department SHAILESH RIVERS APRN [facility] 02-22-2020 [facility] visit [facility] End: 02-22-2020 Start: Patient encounter SHAILESH RIVERS APRN [facility] 02-22-2020 [facility] Start: Patient encounter [facility] [place] [facility] 10-16-2019 [facility] End: 10-16-2019 Start: Patient encounter FABRICIO MANZO [facility] Via [facility] is 10-03-2019 [facility] End: 12-10-2019 Start: Patient encounter FABRICIO MANZO [facility] Via [facility] isti 09-26-2019 [facility] Start: Patient encounter FABRICIO MANZO [facility] Via [facility] is 09-19-2019 [facility] Start: Patient encounter FABRICIO MANZO [facility] isti 09-12-2019 [facility] Start: Patient encounter KAREL VILLA MD [facility] Via risti 07-04-2019 [facility] ([id number]) End: 07-04-2019 Start: Patient encounter KAREL VILLA MD [facility] 06-27-2019 [facility] ([id number]) Start: Patient encounter KAREL VILLA MD [facility] 06-20-2019 [facility] ([id number]) Start: Patient encounter KAREL VILLA MD [facility] 06-10-2019 [facility] ([id number]) Start: Discharged Recurring KAREL Che n [facility] 05-30-2019 [facility] End: 06-11-2019 Start: Patient encounter KAREL VILLA MD [facility] 05-30-2019 [facility] ([id number]) End: 06-09-2019 Start: Patient encounter KAREL VILLA MD [facility] 05-23-2019 [facility] ([id number]) Start: Patient encounter KAREL VILLA MD [facility] 05-16-2019 [facility] ([id number]) Start: Patient encounter KAREL VILLA MD [facility] 05-09-2019 [facility] ([id number]) Start: Patient encounter KAREL VILLA MD [facility] 04-23-2019 [facility] ([id number]) Start: Patient encounter KAREL VILLA MD [facility] 04-17-2019 [facility] ([id number]) Start: Patient encounter KAREL VILLA MD [facility] 04-15-2019 [facility] ([id number]) Start: Patient encounter KAREL VILLA MD [facility] 04-11-2019 [facility] ([id number]) Start: Patient encounter KAREL VILLA MD [facility] 04-11-2019 [facility] ([id number]) Start: Patient encounter KAREL VILLA MD [facility] 04-08-2019 [facility] ([id number]) Start: Patient encounter KAREL VILLA MD [facility] 04-02-2019 [facility] ([id number]) Start: Patient encounter KAREL VILLA MD [facility] 04-02-2019 [facility] ([id number]) Start: Patient encounter KAREL VILLA MD [facility] 03-31-2019 [facility] ([id number]) Start: Patient encounter KAREL VILLA MD [facility] 03-27-2019 [facility] ([id number]) Start: Patient encounter KAREL VILLA MD [facility] 03-25-2019 [facility] ([id number]) Start: Patient encounter KAREL VILLA MD [facility] 03-20-2019 [facility] ([id number]) Start: Patient encounter KAREL VILLA MD [facility] 03-18-2019 [facility] ([id number]) Start: Patient encounter KAREL VILLA MD [facility] 03-12-2019 [facility] ([id number]) Start: Patient encounter KAREL VILLA MD [facility] 02-20-2019 [facility] ([id number]) Start: Patient encounter KAREL VILLA MD [facility] 02-19-2019 [facility] ([id number]) Start: Patient encounter KAREL VILLA MD [facility] 02-12-2019 [facility] ([id number]) End: 02-18-2019 Start: Patient encounter KAREL VILLA MD [facility] 02-05-2019 [facility] ([id number]) Start: Patient encounter KAREL VILLA MD [facility] 02-03-2019 [facility] ([id number]) Start: Patient encounter KAREL VILLA MD [facility] 01-29-2019 [facility] ([id number]) Start: Patient encounter KAREL VILLA MD [facility] 01-27-2019 [facility] ([id number]) Start: Patient encounter KAREL VILLA MD [facility] 01-27-2019 [facility] ([id number]) Start: Patient encounter KAREL VILLA MD [facility] 01-27-2019 [facility] ([id number]) Start: Patient encounter KAREL VILLA MD [facility] 01-23-2019 [facility] ([id number]) Start: Patient encounter KAREL VILLA MD [facility] 01-23-2019 [facility] ([id number]) Start: Patient encounter KAREL VILLA MD [facility] 2019 [facility] ([id number]) Start: Patient encounter KAREL VILLA MD [facility] 01-03-2019 [facility] ([id number]) Start: Patient encounter KAREL VILLA MD [facility] 01-03-2019 [facility] ([id number]) Start: Patient encounter KAREL VILLA MD [facility] 01-03-2019 [facility] ([id number]) Start: Patient encounter KAREL VILLA MD [facility] 01-03-2019 [facility] ([id number]) Start: Patient encounter KAREL VILLA MD [facility] 12-30-2018 [facility] ([id number]) Start: Patient encounter KAREL VILLA MD [facility] 12-27-2018 [facility] ([id number]) Start: Patient encounter KAREL VILLA MD [facility] 12-24-2018 [facility] ([id number]) Start: Patient encounter KAREL VILLA MD [facility] 12-19-2018 [facility] ([id number]) Start: Patient encounter KAREL VILLA MD [facility] 12-16-2018 [facility] ([id number]) Start: Patient encounter KAREL VILLA MD [facility] 12-16-2018 [facility] ([id number]) Start: Patient encounter KAREL VILLA MD [facility] 12-16-2018 [facility] ([id number]) Start: Patient encounter KAREL VILLA MD [facility] 12-10-2018 [facility] ([id number]) Start: Patient encounter KAREL VILLA MD [facility] 12-05-2018 [facility] ([id number]) Start: Patient encounter KAREL VILLA MD [facility] 12-03-2018 [facility] ([id number]) Start: Patient encounter KAREL VILLA MD [facility] 12-02-2018 procedure [facility] ([id number]) Start: Patient encounter KAREL VILLA MD [facility] 11-27-2018 procedure [facility] ([id number]) Start: Patient encounter KAREL VILLA MD [facility] 11-25-2018 procedure [facility] ([id number]) Start: Patient encounter KAREL VILLA MD [facility] 11-21-2018 procedure [facility] ([id number]) Start: Patient encounter KAREL VILLA MD [facility] 11-18-2018 procedure [facility] ([id number]) Start: Patient encounter CLAUDIA DONNELLY [facility] isti 11-11-2018 procedure [facility] ([id number]) Start: Patient encounter TABATHA TIERNEY MD [facility] 09-06-2015 procedure [facility] ([id number]) End: 09-06-2015 Medical Equipment The data below is from unstructured sourcesNo Medical Equipment Information available Goals Date Patient Goal Desired Activity/St ate Immunizations The data below is from unstructured sourcesNo immunization records.No Immunization Information AvailableNo Immunization Information Available Interventions No Information Medications No Information Payers Date Payer Normalized Payer [id number] Plan of Treatment The data below is from unstructured sources Discharge Date 09/06/15 1:24pm Instructions/Education Provided COLO NOSCOPY Prescriptions See Medication Section Problems Active Problems Problem Problem Date Last Documented Episodic/Chr Provider Classificati Recorded Date onic on Abdominal Left lower quadrant pain 02-23-2020 Episodic P ETER RIVERS pain SECRETARY SPECIALIST (1 source) External Other and unspecified overexertion Episodic KAREL ALLEN cause codes: or strenuous movements or postures, Natural/envi initial encounter ronment (20 sources) External Civilian activity done for income Episodic KAREL ALLEN cause codes: or pay MD Unspecified (20 sources) Other Incomplete rotator cuff tear or Episodic KAREL ALLEN connective rupture of left shoulder, not MD tissue specified as traumatic disease (6 sources) Other Trigger finger, unspecified finger 12-11-2019 Epis karlo MANZO connective tissue disease (6 sources) Other Hydronephrosis with renal and 02-23-2020 Episodic SHAILESH SILVESTRE diseases of ureteral calculous obstruction SECRETARY SPECIALIST kidney and ureters (1 source) Other Encounter for screening for Episodic TABATHA screening malignant neoplasm of colon KELSY ESTRADA for suspected conditions (not mental disorders or infectious disease) (1 source) Residual Other specified postprocedural 12-11-2019 Episodic FABRICIO JOVANY codes; states unclassified (6 sources) Sprains and Other sprain of left shoulder Episodic KAREL ALLEN strains joint, initial encounter ; MD (20 sources) Translations: [Strain of mu scle(s) and tendon(s) of the rotator cuff of left shoulder, initial encounter] Past or Other Problems Problem Problem Date Last Documented Episodic/Chr Provider Classificati Recorded Date onic on External Overexertion from strenuous KAREL S CHWAB cause codes: movement or load, initial encounter MD Natural/envi ; Translations: [Other and ronment unspecified overexertion or (18 sources) strenuous movements or post ures, initial encounter] External Civilian activity done for income T ERRY ALLEN cause codes: or pay Unspecified (18 sources) Procedures The data below is from unstructured sourcesNo procedure information available. Results Test Name Value Interpreta Reference Facilit Date tion Range y Time laboratory on 2020-02-22 Albumin [Mass/Vol] 4.2 g/dL Negative 3.2-4.5 PENDING 080 9-2 g/dL [facility] 13:00-0 ([id number]) 400 ALP [Catalytic 107 U/L Negative 40-136 U/L PENDING activity/Vol] [facility] 13:000 ([id number]) 400 ALT [Catalytic 22 U/L Negative 0-55 U/L PENDING activity/Vol] [facility] 13:00-0 ([id number]) 400 Anion gap 10 mmol/L Negative 5-14 PENDING [Moles/Vol] mmol/L [facility] 13:00-0 ([id number]) 400 AST [Catalytic 25 U/L Negative 5-34 U/L PENDING activity/Vol] [facility] 13:000 ([id number]) 400 Bacteria LM Ql Negative Invalid PENDING (Urine sed) Interpreta [facility] 020 tion Code N [facility] 13:43-0 ([id number]) 400 Basophils (Bld) 0.1 10*3/uL Negative 0.0-0.1 PENDING 02-21 [#/Vol] 10*3/uL [facility] 020 [facility] 13:00-0 ([id number]) 400 Basophils/100 WBC 1 % Negative 0-10 % PENDING 02-21 (Bld) [facility] 13:00-0 ([id number]) 400 Bilirubin [Mass/Vol] 0.7 mg/dL Negative 0.1-1.0 PENDING mg/dL [facility] 020 [facility] 13:00-0 ([id number]) 400 Bilirubin Ql (U) Negative Invalid NEGATIVE PENDING Interpreta [facility] 020 tion Code N [facility] 13:43-0 ([id number]) 400 Calcium [Mass/Vol] 8.7 mg/dL Negative 8.5-10.1 PENDING 08-0 9-2 mg/dL [facility] 020 [facility] 13:00-0 ([id number]) 400 Calcium [Mass/Vol] 8.5 mg/dL Negative 8.5-10.1 PENDING 08-0 9-2 mg/dL [facility] 020 [facility] 13:00-0 ([id number]) 400 Casts LM Ql (Urine NONE Invalid PENDING sed) Interpreta [facility] 020 tion Code N [facility] 13:43-0 ([id number]) 400 Chloride [Moles/Vol] 108 mmol/L High 98-107 PENDING 0 -09-2 mmol/L [facility] 020 [facility] 13:00-0 ([id number]) 400 Clarity (U) CLEAR Invalid PENDING Interpreta [facility] 020 tion Code N [facility] 13:43-0 ([id number]) 400 CO2 [Moles/Vol] 23 mmol/L Negative 21-32 PENDING mmol/L [facility] 020 N [facility] 13:00-0 ([id number]) 400 Color (U) YELLOW Invalid PENDING Interpreta [facility] 020 tion Code N [facility] 13:43-0 ([id number]) 400 Creatinine 1.26 mg/dL Negative 0.60-1.30 PENDING [Mass/Vol] mg/dL [facility] 020 N [facility] 13:00-0 ([id number]) 400 Creatinine and 59 Invalid PENDING Glomerular Interpreta [facility] 020 filtration tion Code N [facility] 13:00-0 rate.predicted panel ([id number]) 400 - Serum, Plasma or Blood Crystals LM Ql NONE Invalid PENDING (Urine sed) Interpreta [facility] 020 tion Code N [facility] 13:43-0 ([id number]) 400 Eosinophils (Bld) 0.2 10*3/uL Negative 0.0-0.3 PENDING 03-17 [#/Vol] 10*3/uL [facility] 020 N [facility] 13:00-0 ([id number]) 400 Eosinophils/100 WBC 3 % Negative 0-10 % PENDING 03-17 (Bld) [facility] 020 N [facility] 13:00-0 ([id number]) 400 Epithelial 0-2 Invalid PENDING cells.squamous LM Ql Interpreta [facility] 020 (Urine sed) tion Code N [facility] 13:43-0 ([id number]) 400 Erythrocyte 13.4 % Negative 10.0-14.5 PENDING distribution width % LOC[facility]IO 020 (RBC) [Ratio] N [facility] 13:00-0 ([id number]) 400 Glucose [Mass/Vol] 115 mg/dL High 70-105 PENDING 08 9-2 mg/dL [facility] 020 N S 13:00-0 ([id number]) 400 Glucose Auto test Negative Invalid NEGATIVE PENDING 02-21 strip Ql (U) Interpreta [facility] 020 tion Code N [facility] 13:43-0 ([id number]) 400 Hematocrit (Bld) 48 % Negative 40-54 % PENDING [Volume fraction] [facility] 020 N S 13:00-0 ([id number]) 400 Hemoglobin (Bld) 16.8 g/dL Negative 13.3-17.7 PENDING [Mass/Vol] g/dL [facility] 020 N S 13:00-0 ([id number]) 400 Ketones Auto test Negative Invalid NEGATIVE PENDING 02-21 strip Ql (U) Interpreta [facility] 020 tion Code N [facility] 13:43-0 ([id number]) 400 Leukocyte esterase Negative Invalid NEGATIVE PENDING 03-17 Test strip Ql (U) Interpreta [facility] 020 tion Code N [facility] 13:43-0 ([id number]) 400 Lymphocytes (Bld) 1.5 10*3/uL Negative 1.0-4.0 PENDING 03-17 [#/Vol] 10*3 [facility] 020 N [facility] 13:00-0 ([id number]) 400 Lymphocytes/100 WBC 18 % Negative 12-44 % PENDING 03-17 (Bld) LOCATIO 020 [facility] 13:00-0 ([id number]) 400 MCH (RBC) [Entitic 30 pg Negative 25-34 pg PENDING 03-17 mass] LOCATIO 020 [facility] 13:00-0 ([id number]) 400 MCHC (RBC) 35 g/dL Negative 32-36 g/dL PENDING [Mass/Vol] LOCATIO 020 [facility] 13:00-0 ([id number]) 400 MCV (RBC) [Entitic 85 Negative 80-99 PENDING -2 vol] [foz_us] [facility] 020 [facility] 13:00-0 ([id number]) 400 Monocytes (Bld) 0.5 10*3/uL Negative 0.0-1.0 PENDING 02-21 [#/Vol] 10*3 [facility] 020 [facility] 13:00-0 ([id number]) 400 Monocytes/100 WBC 6 % Negative 0-12 % PENDING 02-21 (Bld) [facility] 020 [facility] 13:00-0 ([id number]) 400 Mucus Ql (Urine sed) SMALL Abnormal PENDING 02-21 [facility] 020 [facility] 13:43-0 ([id number]) 400 Neutrophils (Bld) 5.9 10*3/uL Negative 1.8-7.8 PENDING 03-17 [#/Vol] 10*3 [facility] 020 [facility] 13:00-0 ([id number]) 400 Neutrophils/100 WBC 72 % Negative 42-75 % PENDING 03-17 (Bld) [facility] 13:00-0 ([id number]) 400 Nitrite Ql (U) Negative Invalid NEGATIVE PENDING Interpreta [facility] 020 tion Code N [facility] 13:43-0 ([id number]) 400 pH (U) 7.0 [pH] Invalid 5-9 PENDING Interpreta [facility] 020 tion Code N [facility] 13:43-0 ([id number]) 400 Platelet mean volume 10.6 High 7.4-10.4 PENDING (Bld) [Entitic vol] [foz_us] [facility] 020 N [facility] 13:00-0 ([id number]) 400 Platelets (Bld) 196 10*3/uL Negative 130-400 PENDING 02-21 [#/Vol] 10*3/uL [facility] 020 N S 13:00-0 ([id number]) 400 Potassium 3.9 mmol/L Negative 3.6-5.0 PENDING [Moles/Vol] mmol/L [facility] 020 [facility] 13:00-0 ([id number]) 400 Protein [Mass/Vol] 7.1 g/dL Negative 6.4-8.2 PENDING 9-2 g/dL [facility] 020 N S 13:00-0 ([id number]) 400 Protein Ql (U) Negative Invalid NEGATIVE PENDING Interpreta [facility] 020 tion Code N [facility] 13:43-0 ([id number]) 400 RBC (Bld) [#/Vol] 5.67 10*6/uL Negative 4.35-5.85 PENDING 10*6/uL [facility] 020 N S 13:00-0 ([id number]) 400 RBC LM.HPF (Urine > Abnormal [HPF] PENDING 02-21 sed) [#/Area] [facility] 020 N [facility] 13:43-0 ([id number]) 400 RBC Ql (U) 3+ Abnormal NEGATIVE PENDING [facility] 020 N S 13:43-0 ([id number]) 400 Sodium [Moles/Vol] 141 mmol/L Negative 135-145 PENDING 03-17 mmol/L [facility] 020 N S 13:00-0 ([id number]) 400 Specific gravity (U) 1.015 Low 1.016-1.02 PENDING 0 [Rel density] 2 [facility] 020 N [facility] 13:43-0 ([id number]) 400 Urea nitrogen 12 mg/dL Negative 7-18 mg/dL PENDING [Mass/Vol] [facility] 020 [facility] 13:00-0 ([id number]) 400 Urea 10 mg/mg Invalid PENDING nitrogen/Creatinine Interpreta [facility] 020 [Mass ratio] tion Code N [facility] 13:00-0 ([id number]) 400 Urinalysis complete NO Invalid PENDING W Reflex Culture Interpreta [facility] 020 panel - Urine tion Code N [facility] 13:43-0 ([id number]) 400 Urobilinogen (U) 0.2 mg/dL Invalid < = 1.0 PENDING [Mass/Vol] Interpreta mg/dL [facility] 020 tion Code N [facility] 13:43-0 ([id number]) 400 WBC (Bld) [#/Vol] 8.2 10*3/uL Negative 4.3-11.0 PENDING 03-17 10*3/uL [facility] 020 N [facility] 13:00-0 ([id number]) 400 WBC LM.HPF (Urine NONE Invalid PENDING sed) [#/Area] Interpreta [facility] 020 tion Code N [facility] 13:43-0 ([id number]) 400 Social History Date Type Detail Facility Start: No [place] [facility] 09-06-2015 [facility] ([id number]) Start: Sex Assigned At Male [facility] 1960 [facility] ([id number]) Vital Signs The data below is from unstructured sources Vital Response Date/Time Temperature (Fahrenheit) 97.6 degree s F (97.6 - 99.5) 09/06/2015 1:20pm Temperature (Calculated Celsius) 36. 80385 degrees C (36.4 - 37.5) 09/06/2015 1:20pm Temperature Source Tympanic 09/06/2015 1:20pm Pulse Rate (adult) 84 bpm (60 - 90) 09/06/2015 1:20pm Respiratory Rate 18 bpm (12 - 24) 09/06/2015 1:20pm O2 Sat by Pulse Oximetry 94 % (88 - 100) 09/06/2015 1:20pm Blood Pressure 109/70 mm Hg 09/06/2015 1:20pm Pain Pain Intensity 0 2015 1:20pm Height (Feet) 5 feet 8:08am Height (Inches) 10.00 inches 09/06/2015 8:08am Height (Calculated Centimeters) 177. 157983 cm 09/06/2015 8:08am Weight (Pounds) 165 pounds 09/06/2015 8:08am Weight (Ounces) 0.0 oz 0 09/06/2015 8:08am Weight (Calculated Grams) 40181.742 gm 09/06/2015 8:08am Weight (Calculated Kilograms) 74.842 742 kilograms 09/06/2015 8:08am Calculated BMI 23.67 8:08am No vital signs result information available. Functional Status The data below is from unstructured sourcesNo functional status results.No Functional Status information availableNo Functional Status information available Mental Status The data below is from unstructured sourcesNo Mental Status Information Available Evaluation note Note Date & Note Facility Type Evaluation No Assessments Information Available [facility] scension Via note [facility] ([id number]) Advance Directives Directive Response Recor ded Date/Time Advance Directives No 8:06am Health Care Power of Hedis Nurse No 09/06/15 8:06am Organ Donor No 09/06/15 8:06am Resuscitation Status Full Code 09/06/15 8:06am Advance Directive Response Recorded Date/Time Advance Directives No [facility] 2015 8:06am Health Care Power of Hedis Nurse No September 06, 2015 8:06am Organ Donor No September 06, 2015 8:06am Discharge Instructions Patient Instructions Physician Instructions New, Converted or Re-Newed RX: Other Plan of Care/Instructions/FU: Repeat colonoscopy in 10 years Activity as Tolerated: Yes Discharge Diet: No Restrictions Care Plan Patient Instructions:: Repeat colonoscopy in 10 years Additional Source Comments This clinical document has been generated using [employer] software that has been certified by the Office of the National Coordinator for Health Information Technology (ONC 15.99.04.3023.Diam.31.00.0.039525) and the National Committee for Electronics Teacher (NCQA, as an eMeasure certified technology). FOR RECORDS PERTAINING TO PATIENTS WHO ARE OR HAVE BEEN ENROLLED IN A CHEMICAL D EPENDENCY/SUBSTANCE ABUSE PROGRAM, SOME INFORMATION MAY BE OMITTED. This clinica l summary was aggregated from multiple sources. Caution should be exercised in using it in the provision of clinical care. This summary normalizes information from multiple sources, and as a consequence, information in this document may ma terially change the coding, format and clinical context of patient data. In griffin tion, data may be omitted in some cases. CLINICAL DECISIONS SHOULD BE BASED ON T HE PRIMARY CLINICAL RECORDS. [employer] [facility]. provides no warranty or guara ntee of the accuracy or completeness of information in this document.The followi information is based on time limited clinical information
[2020-02-25] MEDS ORDERED: cefTRIAXone FOR IV USE 1,000 MG in WATER (STERILE) FOR INJECTION 10 ML IV ONE (10:00)
--- NOTE | 2020-02-25 10:17 | Progress Note-Pre Operative ---
Pre-Operative Progress Note H&P Reviewed The H&P was reviewed, patient examined and no changes noted. Date Seen by Provider: Feb 25, 2020 Time Seen by Provider: 10:16 Date H&P Reviewed: Feb 25, 2020 Time H&P Reviewed: 10:16 Pre-Operative Diagnosis: LT URETERAL STONE WALKER ELKINS MD Feb 25, 2020 10:17
--- NOTE | 2020-02-25 10:25 | Diagnostic Imaging Report ---
INDICATION: Nephrolithiasis KUB 10:18 AM There is a moderate amount of stool throughout the colon. Bowel gas pattern is normal. There are no pathologic masses. There is a 3 mm calcification in the left-side of the pelvis near the ureterovesical junction that could be a left ureteral calculus that has migrated since 02/22/2020. IMPRESSION: 3 mm calculus distal left ureter. Dictated by: Dictated on workstation # [id number]
[2020-02-25] MEDS ORDERED: proPOfol 200 MG/20 ML (DIPRIVAN) VIAL IV ONE (11:37)
[2020-02-25] MEDS ORDERED: LIDOCAINE PF 2% 5 ML (XYLOCAINE) VIAL ONE (11:37)
[2020-02-25] MEDS ORDERED: fentaNYL INJECTION 100 MCG/2 ML AMP ONE (11:37)
[2020-02-25] MEDS ORDERED: ONDANSETRON 4 MG/2 ML (SDV) Z0FRAN ONE (11:37)
[2020-02-25] MEDS ORDERED: MIDAZOLAM 2 MG/2 ML (VERSED) VIAL ONE (11:37)
[2020-02-25] MEDS ORDERED: SEVOFLURANE (ULTANE) 15 ML INHAL SOLN ONE (11:37)
--- NOTE | 2020-02-25 11:49 | Progress Note-Post Operative ---
Post-Operative Progess Note Surgeon (s)/Laboratory Machinist (s) Surgeon WALKER ELKINS MD Laboratory Machinist: NONE Pre-Operative Diagnosis LT URETERAL STONE Post-Operative Diagnosis SAME Procedure & Operative Findings Date of Procedure 02/25/20 Procedure Performed/Findings CYSTOSCOPY WITH STONE MANIPULATION AND POSSIBLE FRAGMENTATION, ATTEMPTED URETEROSCOPY WITH STENT PLACEMENT Anesthesia Type GENERAL Estimated Blood Loss Estimated blood loss (mL): NONE Specimens/Packing Specimens Removed NONE Packing: NONE WALKER ELKINS MD Feb 25, 2020 11:49
--- NOTE | 2020-02-25 11:50 | Discharge Inst-Urology ---
Discharge Inst-Urology Reconcile Patient Problems Problems Reviewed?: Yes Final Diagnosis LT URETERAL STONE Patient Instructions/Follow Up Plan/Assessment/Instructions Please make appointment to been seen in office in 1 week, KUB prior to it KUB on way home Increase oral fluids for 48 hours and then as needed. Diet and Activity as tolerated. If questions or concerns contact your physician Or seek help at emergency department. WALKER ELKINS MD Feb 25, 2020 11:50
--- NOTE | 2020-02-25 15:52 | Diagnostic Imaging Report ---
INDICATION: Nephrolithiasis. EXAMINATION: KUB at 2:44 PM. FINDINGS: There is a left double-J ureteral stent. There are no calculi seen. The bowel gas pattern is normal. IMPRESSION: The left double-J ureteral stent appears to be in appropriate position. Dictated by: Dictated on workstation # [id number]
--- NOTE | 2020-02-25 18:06 | OPERATIVE REPORT ---
DATE OF SERVICE: 02/25/2020 PREOPERATIVE DIAGNOSIS: Left distal ureteral stone. POSTOPERATIVE DIAGNOSIS: Left distal ureteral stone. OPERATION PERFORMED: Cystoscopy with stone manipulation, possible fragmentation and attempted ureteroscopy with stent placement. SURGEON: Bruce Elkins MD ANESTHESIA: General. COMPLICATIONS: None. DESCRIPTION OF PROCEDURE: Under satisfactory general anesthesia, the patient in lithotomy position, genitalia were prepped and draped in the usual sterile fashion. Cystoscope was introduced under vision. The anterior urethra was normal. The prostate was nonobstructing, but there was high riding with a high riding bar. This produced upward and the lateral angulation of the ureteral orifices. I was able to pass a 5-Trinidadian and then a 6-Trinidadian ureteral catheter and I could feel the stone and seen by fluoroscopy and by passing, so I felt that I could have a mechanically fragmented the stone, but not sure of that. I tried to pass a 6.9 Trinidadian semi-rigid ureteroscope, but I could not manipulate the fishhook deformity of the ureter from the prostate. I discontinued that attempt. I elected to put a stent to allow the stone and/or fragment to pass and by straightening of the ureter and avoid the curve and since the stone is not big enough to justify really ESWL there that shortly elected to do. I passed the stent 6-Trinidadian [address] up to the left renal pelvis guided fluoroscopically. I removed the guidewire, the stent was seen jetting nicely proximally fluoroscopically and distally endoscopically. I evacuated the bladder, removed the cystoscope. The patient tolerated the procedure and anesthesia well and was sent to recovery room in stable condition. PLAN: I will see him back in a week to get a KUB and manage accordingly. Job ID: [id number] DocumentID: [id number] Dictated Date: 02/25/2020 12:50:21 Business Assistant Date: 02/25/2020 18:05:45 Dictated By: BRUCE ELKINS MD
--- NOTE | 2020-03-02 07:56 | Anesthesia-General Post-Op ---
General Significant Intra-Op Events Notes late entry 02/25/20 @ 1345 Patient Condition Mental Status/LOC: Same as Preop Cardiovascular: Satisfactory Nausea/Vomiting: Absent Respiratory: Satisfactory Pain: Controlled Complications: Absent Post Op Complications Complications None Follow Up Care/Instructions Patient Instructions None needed. Anesthesia/Patient Condition Patient Condition Patient is doing well, no complaints, stable vital signs, no apparent adverse anesthesia problems. No complications reported per nursing. SAMI TEJADA CRNA Mar 02, 2020 07:55
== END 2020-02-25 15:00 | disposition home or self-care (01) ==
LOC: SDC 09:40
PROVIDERS: ATTEND Urology
DX: N20.1 Calculus of ureter (principal)
CPT/HCPCS: 52352; 74018; 76000; 87081; C2625

== ENCOUNTER → 2020-03-03 | Outpatient (CLI) | payer OTHER ==
--- NOTE | 2020-03-04 15:32 | Diagnostic Imaging Report ---
NAME: Antony Haynes. : 1960. EXAMINATION: KUB on 03/03/2020 at 1:53 PM. INDICATION: Left distal ureteral stone post ESWL. COMPARISON: Correlation is made with the prior radiograph from 02/25/2020. FINDINGS: The left double-J nephroureteral stent remains in place. No definite calculi along the course of the stent are identified. No right-sided radiopaque urinary tract calculi are seen. The bowel gas pattern is unremarkable. IMPRESSION: No definite radiopaque urinary tract calculi are detected. Dictated by: Dictated on workstation # [id number]
== END ==
LOC: RAD 13:26
PROVIDERS: ATTEND Urology
DX: N20.1 Calculus of ureter (principal); Z98.890 Other specified postprocedural states
CPT/HCPCS: 74018

== ENCOUNTER → 2020-03-11 | Outpatient (CLI) | payer OTHER ==
--- NOTE | 2020-03-11 18:24 | Diagnostic Imaging Report ---
INDICATION: Elevated parathyroid hormone. The patient was administered 20.7 mCi technetium 99m sestamibi intravenously and imaging over the neck and upper chest was performed at 20 minutes and 2 hours. SPECT-CT was also performed. 20 minute image demonstrated physiologic activity within the salivary glands as well as both lobes of the thyroid. Delayed 2 hour images demonstrate clearing of activity from both thyroid lobes. No focus of tracer accumulation is seen to suggest a parathyroid adenoma. IMPRESSION: Normal parathyroid study. Dictated by: Dictated on workstation # [id number]
== END ==
LOC: CARD 11:35
PROVIDERS: ATTEND Urology
DX: E21.5 Disorder of parathyroid gland, unspecified (principal)
CPT/HCPCS: 78072; A9500

== ENCOUNTER → 2020-12-16 | Outpatient (CLI) | payer OTHER ==
--- NOTE | 2020-12-16 17:02 | Diagnostic Imaging Report ---
INDICATION: Nephrolithiasis KUB 4:03 PM Bowel gas pattern is normal. There are no pathologic masses or calcifications seen. IMPRESSION: Unremarkable abdomen Dictated by: Dictated on workstation # [id number]
== END ==
LOC: RAD 15:45
PROVIDERS: ATTEND Urology
DX: N20.0 Calculus of kidney (principal)
CPT/HCPCS: 74018

== ENCOUNTER → 2021-08-15 | Outpatient (RCR) | payer OTHER | END | disposition home or self-care (01) | PROVIDERS: ATTEND Orthopaedic Surgery Hand Surgery | DX: S66.320D Laceration of extensor muscle, fascia and tendon of right index finger at wrist and hand level, subsequent encounter (principal); W26.8XXD Contact with other sharp object(s), not elsewhere classified, subsequent encounter ==

== ENCOUNTER → 2021-09-12 | Outpatient (RCR) | payer OTHER | END | disposition home or self-care (01) | PROVIDERS: ATTEND Orthopaedic Surgery Hand Surgery | DX: S61.210D Laceration without foreign body of right index finger without damage to nail, subsequent encounter (principal); X58.XXXD Exposure to other specified factors, subsequent encounter ==

== ENCOUNTER → 2021-10-13 | Outpatient (RCR) | payer OTHER | END | disposition home or self-care (01) | PROVIDERS: ATTEND Orthopaedic Surgery Hand Surgery | DX: S61.210D Laceration without foreign body of right index finger without damage to nail, subsequent encounter (principal); X58.XXXD Exposure to other specified factors, subsequent encounter ==

== ENCOUNTER 2021-10-27 14:49 | Outpatient (RCR) | payer OTHER | END 2021-10-27 17:00 | disposition home or self-care (01) | PROVIDERS: ATTEND Orthopaedic Surgery Hand Surgery | DX: S61.210D Laceration without foreign body of right index finger without damage to nail, subsequent encounter (principal); X58.XXXD Exposure to other specified factors, subsequent encounter ==

== ENCOUNTER → 2021-12-15 | Outpatient (CLI) | payer OTHER ==
--- NOTE | 2021-12-15 17:33 | Diagnostic Imaging Report ---
INDICATION: Renal stones, follow-up. TECHNIQUE: Abdominal film obtained at 04:34 p.m. and compared with 12/16/2020. FINDINGS: Abdominal bowel gas pattern appears unremarkable. There is no overt obstruction. There are no radiopaque calcifications overlying the renal shadows. There are chronic changes in the right iliac wing. IMPRESSION: Unremarkable abdominal film, no abnormal bowel gas pattern or abnormal calcifications. Dictated by: Dictated on workstation # [id number]
== END ==
LOC: RAD 16:09
PROVIDERS: ATTEND Urology
DX: N20.0 Calculus of kidney (principal)
CPT/HCPCS: 74018

== ENCOUNTER → 2022-04-07 | Outpatient (CLI) | payer OTHER ==
[2022-04-07 10:03] LABS: BASOPHILS # (AUTO) 0.1 10^3/uL (0.0-0.1); BASOPHILS % (AUTO) 1 % (0-10); EOSINOPHILS # (AUTO) 0.2 10^3/uL (0.0-0.3); EOSINOPHILS % (AUTO) 2 % (0-10); HEMATOCRIT 50 % (40-54); LYMPHOCYTES # (AUTO) 1.3 10^3/uL (1.0-4.0); LYMPHOCYTES % (AUTO) 17 % (12-44); MEAN CORPUSCULAR HEMOGLOBIN 30 pg (25-34); MEAN CORPUSCULAR HGB CONC 34 g/dL (32-36); MEAN CORPUSCULAR VOLUME 87 fL (80-99); MEAN PLATELET VOLUME 9.8 fL (9.0-12.2); MONOCYTES # (AUTO) 0.6 10^3/uL (0.0-1.0); MONOCYTES % (AUTO) 7 % (0-12); NEUTROPHILS # (AUTO) 5.5 10^3/uL (1.8-7.8); NEUTROPHILS % (AUTO) 71 % (42-75); PLATELET COUNT 167 10^3/uL (130-400); WHITE BLOOD COUNT 7.7 10^3/uL (4.3-11.0)
[2022-04-07 10:32] LABS: ALANINE AMINOTRANSFERASE 31 U/L (0-55); ALBUMIN 4.3 GM/DL (3.2-4.5); ALKALINE PHOSPHATASE 132 U/L (40-136); BILIRUBIN,TOTAL 1.3 MG/DL (0.1-1.0); BUN/CREATININE RATIO 10; CARBON DIOXIDE 25 MMOL/L (21-32); CHLORIDE 109 MMOL/L (98-107); CREATININE SERUM 1.22 MG/DL (0.60-1.30); GFR ESTIMATED 67; GLUCOSE 99 MG/DL (70-105); POTASSIUM 4.1 MMOL/L (3.6-5.0); SODIUM 142 MMOL/L (135-145); TOTAL PROTEIN 7.1 GM/DL (6.4-8.2)
== END ==
LOC: LAB 09:29
PROVIDERS: ATTEND Family Medicine
DX: R07.9 Chest pain, unspecified (principal)
CPT/HCPCS: 36415; 80053; 84484; 85025